=== PATIENT | female | born 1970 | race Two or more races ===

== ENCOUNTER → 2019-05-16 | Emergency (ER) | payer OTHER ==
[~2019-05-16] VITALS: Ht 157.5 cm; Wt 52.2 kg
[~2019-05-16] MED LIST: KETO10TA2 PO
== END | disposition home or self-care (01) ==
LOC: ER 06:12
DX: M25.511 Pain in right shoulder (principal)

== ENCOUNTER → 2019-05-20 | Emergency (ER) | payer OTHER ==
[~2019-05-20] VITALS: Ht 160 cm; Wt 56.7 kg
== END | disposition left against medical advice (07) ==
LOC: ER 10:07
DX: Z53.20 Procedure and treatment not carried out because of patient's decision for unspecified reasons (principal)

== ENCOUNTER 2020-09-21 02:44 | Emergency (ER) | payer OTHER ==
[~2020-09-21] VITALS: Ht 160 cm; Wt 59.0 kg
[2020-09-21] MEDS ORDERED: ULTRAM50 MG PO (05:15)
== END 2020-09-21 05:21 ==
LOC: ER 02:44
DX: K08.89 Other specified disorders of teeth and supporting structures (principal)